=== PATIENT | female | born 1960 | race Caucasian/White ===

== ENCOUNTER 2018-12-27 10:22 | Emergency (ER) | payer MEDICAID ==
[~2018-12-27] VITALS: Ht 165.1 cm; Wt 109.1 kg
[2018-12-27 10:27] VITALS: Ht 165.1 cm; Wt 109.1 kg
[2018-12-27] MEDS ORDERED: ZANAFLEX4 MG PO (10:29)
[2018-12-27] MEDS ORDERED: IBUPROFEN200 MG PO (10:29)
[2018-12-27] MEDS ORDERED: ULTRAM50 MG PO (11:04)
[2018-12-27 11:21] VITALS: BP 135/74
== END 2018-12-27 11:22 | disposition home or self-care (01) ==
LOC: D.ER 10:22
DX: S82.891A Other fracture of right lower leg, initial encounter for closed fracture (principal); W18.30XA Fall on same level, unspecified, initial encounter; Y93.89 Activity, other specified; Y92.89 Other specified places as the place of occurrence of the external cause

== ENCOUNTER 2019-03-08 08:00 | Outpatient (CLI) | payer MEDICAID ==
[2018-12-27 10:27] VITALS: BMI 40.0
[~2019-03-08 08:00] MED LIST: IBUPROFEN200 MG PO; ULTRAM50 MG PO; ZANAFLEX4 MG PO
== END 2019-03-08 23:59 | disposition home or self-care (01) ==
LOC: D.MAMMO 08:00
PROVIDERS: ATTEND Family Medicine
DX: Z85.3 Personal history of malignant neoplasm of breast (principal)